=== PATIENT | male | born 1985 | race Hispanic/Latino ===

== ENCOUNTER 2019-11-18 11:44 | Inpatient (IN) | payer OTHER ==
[~2019-11-18] VITALS: Ht 167.6 cm; Wt 78.9 kg
--- OUTSIDE RECORDS SUMMARY | 2019-11-18 11:47 | XMS REPORT ---
Author Author [facility] Address Unknown Phone Unavailable Care Team Providers Care Psychiatry Physician Name Role Phone Unavailable Unavailable Payers Payer Name Policy Type Policy Number Effective Date Expiration Date Problems This patient has no known problems. Allergies, Adverse Reactions, Alerts Allergy Name Allergy Type Status Severity Reaction(s) Onset Date Inactive Date Treating Clinician Comments No Known Allergies DA Active U 2019-03-29 00:00:00 No Known Contrast Allergies DA Active U 2006-10-31 00:00:00 No Known Drug Allergies DA Active U 2006-10-31 00:00:00 No Known Food Allergies DA Active U 2006-10-31 00:00:00 No Known Other Allergies DA Active U 2006-10-31 00:00:00 Medications This patient has no known medications. Results Test Description Test Time Test Comments Text Results Atomic Results Result Comments COMPREHENSIVE METABOLIC PANEL 2019-03-30 05:08:00 SODIUM (test code=NA) 144 mmol/L 136-145 POTASSIUM (test code=K) 3.5 mmol/L 3.5-5.1 CHLORIDE (test code=CL) 113.0 mmol/L 98-107 CARBON DIOXIDE (test code=CO2) 23.0 mmol/L 21-32 ANION GAP (test code=GAP) 11.5 10-20 GLUCOSE (test code=GLU) 119 mg/dL 74-106 BLOOD UREA NITROGEN (test code=BUN) 12 mg/dL 7-18 GLOMERULAR FILTRATION RATE (test code=GFR) > 60 mL/min >=60 Estimated GFR by using Modified MDRD formula.Chronic kidney disease is defined as either kidney damageor GFR <60 mL/min/1.73 m2 for >3 months. CREATININE (test code=CREAT) 1.10 mg/dL 0.7-1.3 BUN/CREATININE RATIO (test code=BUN/CREA) 10.5 10-20 TOTAL PROTEIN (test code=PROT) 5.7 gram/dL 6.4-8.2 ALBUMIN (test code=ALB) 3.2 g/dL 3.4-5.0 GLOBULIN (test code=GLOB) 2.5 gram/dL 2.7-4.2 ALBUMIN/GLOBULIN RATIO (test code=A/G) 1.3 0.75-1.50 CALCIUM (test code=CA) 8.3 mg/dL 8.5-10.1 BILIRUBIN TOTAL (test code=BILT) 0.30 mg/dL 0.0-1.0 SGOT/AST (test code=AST) 17 IUnit/L 15-37 SGPT/ALT (test code=ALT) 48 IUnit/L 12-78 ALKALINE PHOSPHATASE TOTAL (test code=ALKP) 76 IUnit/L 45-117 Note change in reference range due to change in reagent. [id number] 05:08:00* Test Item Value Reference Range Comments MAGNESIUM (test code=MAG) 2.2 mg/dL 1.8-2.4 COMPREHENSIVE METABOLIC [id number] 05:01:00* Test Item Value Reference Range Comments SODIUM (test code=NA) 144 mmol/L 136-145 POTASSIUM (test code=K) 3.5 mmol/L 3.5-5.1 CHLORIDE (test code=CL) 113.0 mmol/L 98-107 CARBON DIOXIDE (test code=CO2) mmol/L 21-32 ANION GAP (test code=GAP) 10-20 GLUCOSE (test code=GLU) mg/dL 74-106 BLOOD UREA NITROGEN (test code=BUN) mg/dL 7-18 GLOMERULAR FILTRATION RATE (test code=GFR) mL/min >=60 CREATININE (test code=CREAT) mg/dL 0.7-1.3 BUN/CREATININE RATIO (test code=BUN/CREA) 10-20 TOTAL PROTEIN (test code=PROT) gram/dL 6.4-8.2 ALBUMIN (test code=ALB) g/dL 3.4-5.0 GLOBULIN (test code=GLOB) gram/dL 2.7-4.2 ALBUMIN/GLOBULIN RATIO (test code=A/G) 0.75-1.50 CALCIUM (test code=CA) mg/dL 8.5-10.1 BILIRUBIN TOTAL (test code=BILT) mg/dL 0.0-1.0 SGOT/AST (test code=AST) IUnit/L 15-37 SGPT/ALT (test code=ALT) IUnit/L 12-78 ALKALINE PHOSPHATASE TOTAL (test code=ALKP) IUnit/L 45-117 [id number] 05:01:00* Test Item Value Reference Range Comments MAGNESIUM (test code=MAG) mg/dL 1.8-2.4 CBC W/AUTO [id number] 04:53:00* Test Item Value Reference Range Comments WHITE BLOOD CELL (test code=WBC) 6.5 K/mm3 4.5-12.5 RED BLOOD CELL (test code=RBC) 4.16 mill/mm3 4.0-5.8 HEMOGLOBIN (test code=HGB) 13.4 gram/dL 13.0-17.5 HEMATOCRIT (test code=HCT) 39.0 % 42.0-52.0 MEAN CELL VOLUME (test code=MCV) 93.8 fL 80-98 MEAN CELL HGB (test code=MCH) 32.2 picogram 27.0-33.0 MEAN CELL HGB CONCETRATION (test code=MCHC) 34.4 gram/dL 33.0-36.0 RED CELL DISTRIBUTION WIDTH (test code=RDW) 12.1 % 11.6-16.2 RED CELL DISTRIBUTION WIDTH SD (test code=RDW-SD) 42.2 fL 37.0-51.0 PLATELET COUNT (test code=PLT) 171 K/mm3 150-450 MEAN PLATELET VOLUME (test code=MPV) 10.3 fL 6.7-11.0 NEUTROPHIL % (test code=NT%) 43.0 % 39.0-69.0 IMMATURE GRANULOCYTE % (test code=IG%) 0.2 % 0.0-5.0 LYMPHOCYTE % (test code=LY%) 47.0 % 25.0-55.0 MONOCYTE % (test code=MO%) 7.5 % 0.0-10.0 EOSINOPHIL % (test code=EO%) 1.7 % 0.0-5.0 BASOPHIL % (test code=BA%) 0.6 % 0.0-1.0 NUCLEATED RBC % (test code=NRBC%) 0.0 % 0-0 NEUTROPHIL # (test code=NT#) 2.80 K/mm3 1.8-7.7 IMMATURE GRANULOCYTE # (test code=IG#) 0.01 x10 3/uL 0-0.03 LYMPHOCYTE # (test code=LY#) 3.06 K/mm3 1.0-5.0 MONOCYTE # (test code=MO#) 0.49 K/mm3 0-0.8 EOSINOPHIL # (test code=EO#) 0.11 K/mm3 0.0-0.5 BASOPHIL # (test code=BA#) 0.04 K/mm3 0.0-0.2 NUCLEATED RBC # (test code=NRBC#) 0.00 K/mm3 0.0-0.1 MANUAL DIFF REQUIRED (test code=MDIFF) NO [id number] 16:29:00* Test Item Value Reference Range Comments SALICYLATE (test code=TRACIE) 2.4 mg/dL 2.8-20.0 [id number] 16:29:00* Test Item Value Reference Range Comments ALCOHOL (test code=ALC) < 3 mg/dL 0.0-3.0 INTERPRETIVE DATA NOTE: POSITIVE SCREENING RESULTS SHOULD BE CONSIDERED PRESUMPTIVE.WHEN COLLECTED FOR MEDICAL PURPOSES ONLY. SPECIMEN WILL NOTBE COLLECTED BY CHAIN OF CUSTODY.IF A CONFIRMATION OF POSITIVE RESULTS IS DESIRED, ACONFIRMATION TEST MUST BE REQUESTED BY THE PHYSICIAN AT ANADDITIONAL CHARGE TO THE PATIENT. [id number] 16:25:00* Test Item Value Reference Range Comments MAGNESIUM (test code=MAG) 3.0 mg/dL 1.8-2.4 [id number] 09:31:00* Test Item Value Reference Range Comments ACETAMINOPHEN (test code=ACET) < 10 mcg/mL 10-30 A RANGE OF 10-30 mcg/mL IS A THERAPEUTIC RANGE. TOXIC CONCENTRATIONS: >150 mcg/mL AT 4 HOURS AFTER INGESTION >=50 mcg/mL AT 12 HOURS AFTER INGESTION [id number] 09:26:00* Test Item Value Reference Range Comments SALICYLATE (test code=TRACIE) 2.3 mg/dL 2.8-20.0 URINALYSIS [id number] 06:46:00* Test Item Value Reference Range Comments UA COLOR (test code=COLU) COLORLESS YELLOW UA APPEARANCE (test code=APPU) CLEAR CLEAR UA GLUCOSE DIPSTICK (test code=DGLUU) NEGATIVE mg/dL NEGATIVE UA BILIRUBIN DIPSTICK (test code=BILU) NEGATIVE mg/dL NEGATIVE UA KETONE DIPSTICK (test code=KETU) NEGATIVE mg/dL NEGATIVE UA SPECIFIC GRAVITY (test code=SGU) 1.008 1.001-1.035 UA BLOOD DIPSTICK (test code=CAROL) Negative mg/dL NEGATIVE UA PH DIPSTICK (test code=GARIMA) 5.5 5.0-8.0 UA PROTEIN DIPSTICK (test code=PROU) NEGATIVE mg/dL NEGATIVE UA UROBILINIOGEN DIPSTICK (test code=URO) Normal mg/dL NEGATIVE UA NITRITE DIPSTICK (test code=ABIGAIL) NEGATIVE NEGATIVE UA LEUKOCYTE ESTERASE W REFLEX (test code=LEUUR) NEGATIVE Tiffany/uL NEGATIVE UA WBC (test code=WBCU) 0-5 per HPF 0-5 UA RBC (test code=RBCU) 0-2 #/HPF 0-5 UA EPITHELIAL CELLS (test code=EPIU) None seen per HPF FEW UA BACTERIA (test code=BACU) FEW #/HPF NONE UA MUCUS (test code=MUCU) FEW #/LPF FEW Urine Source? Clean CatchDRUGS OF ABUSE SCREEN [id number] 06:46:00* Test Item Value Reference Range Comments URN COCAINE (test code=COCAURN) NEGATIVE <300 ng/mL URN CANNABINOIDS (test code=CANNABURN) NEGATIVE <50 ng/mL URN AMPHETAMINE (test code=AMPHETURN) NEGATIVE <1000 ng/mL URN BARBITURATE (test code=BARBITURN) NEGATIVE <200 ng/mL URN BENZODIAZEPINE (test code=BENZOURN) NEGATIVE <200 ng/mL URN OPIATES (test code=OPIATURN) NEGATIVE <300 ng/mL URN PHENCYCLIDINE (PCP) (test code=PHENCURN) NEGATIVE <25 ng/mL URN METHADONE (test code=METHAURN) NEGATIVE <300 ng/mL Urine Source? Clean CatchURINALYSIS [id number] 06:45:00* Test Item Value Reference Range Comments UA COLOR (test code=COLU) COLORLESS YELLOW UA APPEARANCE (test code=APPU) CLEAR CLEAR UA GLUCOSE DIPSTICK (test code=DGLUU) NEGATIVE mg/dL NEGATIVE UA BILIRUBIN DIPSTICK (test code=BILU) NEGATIVE mg/dL NEGATIVE UA KETONE DIPSTICK (test code=KETU) NEGATIVE mg/dL NEGATIVE UA SPECIFIC GRAVITY (test code=SGU) 1.008 1.001-1.035 UA BLOOD DIPSTICK (test code=CAROL) Negative mg/dL NEGATIVE UA PH DIPSTICK (test code=GARIMA) 5.5 5.0-8.0 UA PROTEIN DIPSTICK (test code=PROU) NEGATIVE mg/dL NEGATIVE UA UROBILINIOGEN DIPSTICK (test code=URO) Normal mg/dL NEGATIVE UA NITRITE DIPSTICK (test code=ABIGAIL) NEGATIVE NEGATIVE UA LEUKOCYTE ESTERASE W REFLEX (test code=LEUUR) NEGATIVE Tiffany/uL NEGATIVE UA WBC (test code=WBCU) 0-5 per HPF 0-5 UA RBC (test code=RBCU) 0-2 #/HPF 0-5 UA EPITHELIAL CELLS (test code=EPIU) None seen per HPF FEW UA BACTERIA (test code=BACU) FEW #/HPF NONE UA MUCUS (test code=MUCU) FEW #/LPF FEW Urine Source? Clean CatchDRUGS OF ABUSE SCREEN [id number] 06:45:00* Test Item Value Reference Range Comments URN COCAINE (test code=COCAURN) <300 ng/mL URN CANNABINOIDS (test code=CANNABURN) <50 ng/mL URN AMPHETAMINE (test code=AMPHETURN) <1000 ng/mL URN BARBITURATE (test code=BARBITURN) <200 ng/mL URN BENZODIAZEPINE (test code=BENZOURN) <200 ng/mL URN OPIATES (test code=OPIATURN) <300 ng/mL URN PHENCYCLIDINE (PCP) (test code=PHENCURN) <25 ng/mL URN METHADONE (test code=METHAURN) <300 ng/mL Urine Source? Clean [id number] 05:22:00* Test Item Value Reference Range Comments MAGNESIUM (test code=MAG) 1.7 mg/dL 1.8-2.4 BASIC METABOLIC [id number] 04:00:00* Test Item Value Reference Range Comments SODIUM (test code=NA) 144 mmol/L 136-145 POTASSIUM (test code=K) 3.3 mmol/L 3.5-5.1 CHLORIDE (test code=CL) 107.0 mmol/L 98-107 CARBON DIOXIDE (test code=CO2) 25.0 mmol/L 21-32 ANION GAP (test code=GAP) 15.3 10-20 GLUCOSE (test code=GLU) 102 mg/dL 74-106 BLOOD UREA NITROGEN (test code=BUN) 15 mg/dL 7-18 GLOMERULAR FILTRATION RATE (test code=GFR) > 60 mL/min >=60 Estimated GFR by using Modified MDRD formula.Chronic kidney disease is defined as either kidney damageor GFR <60 mL/min/1.73 m2 for >3 months. CREATININE (test code=CREAT) 1.20 mg/dL 0.7-1.3 BUN/CREATININE RATIO (test code=BUN/CREA) 12.0 10-20 CALCIUM (test code=CA) 8.4 mg/dL 8.5-10.1 HEPATIC FUNCTION [id number] 04:00:00* Test Item Value Reference Range Comments TOTAL PROTEIN (test code=PROT) 6.7 gram/dL 6.4-8.2 ALBUMIN (test code=ALB) 3.9 g/dL 3.4-5.0 GLOBULIN (test code=GLOB) 2.8 gram/dL 2.7-4.2 ALBUMIN/GLOBULIN RATIO (test code=A/G) 1.4 0.75-1.50 BILIRUBIN TOTAL (test code=BILT) 0.30 mg/dL 0.0-1.0 BILIRUBIN DIRECT (test code=BILD) 0.10 mg/dL 0.0-0.20 SGOT/AST (test code=AST) 20 IUnit/L 15-37 SGPT/ALT (test code=ALT) 71 IUnit/L 12-78 ALKALINE PHOSPHATASE TOTAL (test code=ALKP) 77 IUnit/L 45-117 Note change in reference range due to change in reagent. [id number] 04:00:00* Test Item Value Reference Range Comments ACETAMINOPHEN (test code=ACET) < 10 mcg/mL 10-30 A RANGE OF 10-30 mcg/mL IS A THERAPEUTIC RANGE. TOXIC CONCENTRATIONS: >150 mcg/mL AT 4 HOURS AFTER INGESTION >=50 mcg/mL AT 12 HOURS AFTER INGESTION [id number] 04:00:00* Test Item Value Reference Range Comments SALICYLATE (test code=TRACIE) 2.7 mg/dL 2.8-20.0 [id number] 04:00:00* Test Item Value Reference Range Comments ALCOHOL (test code=ALC) 114 mg/dL 0.0-3.0 INTERPRETIVE DATA NOTE: POSITIVE SCREENING RESULTS SHOULD BE CONSIDERED PRESUMPTIVE.WHEN COLLECTED FOR MEDICAL PURPOSES ONLY. SPECIMEN WILL NOTBE COLLECTED BY CHAIN OF CUSTODY.IF A CONFIRMATION OF POSITIVE RESULTS IS DESIRED, ACONFIRMATION TEST MUST BE REQUESTED BY THE PHYSICIAN AT ANADDITIONAL CHARGE TO THE PATIENT. BASIC METABOLIC [id number] 03:53:00* Test Item Value Reference Range Comments SODIUM (test code=NA) 144 mmol/L 136-145 POTASSIUM (test code=K) 3.3 mmol/L 3.5-5.1 CHLORIDE (test code=CL) 107.0 mmol/L 98-107 CARBON DIOXIDE (test code=CO2) mmol/L 21-32 ANION GAP (test code=GAP) 10-20 GLUCOSE (test code=GLU) mg/dL 74-106 BLOOD UREA NITROGEN (test code=BUN) mg/dL 7-18 GLOMERULAR FILTRATION RATE (test code=GFR) mL/min >=60 CREATININE (test code=CREAT) mg/dL 0.7-1.3 BUN/CREATININE RATIO (test code=BUN/CREA) 10-20 CALCIUM (test code=CA) mg/dL 8.5-10.1 HEPATIC FUNCTION [id number] 03:53:00* Test Item Value Reference Range Comments TOTAL PROTEIN (test code=PROT) gram/dL 6.4-8.2 ALBUMIN (test code=ALB) g/dL 3.4-5.0 GLOBULIN (test code=GLOB) gram/dL 2.7-4.2 ALBUMIN/GLOBULIN RATIO (test code=A/G) 0.75-1.50 BILIRUBIN TOTAL (test code=BILT) mg/dL 0.0-1.0 BILIRUBIN DIRECT (test code=BILD) mg/dL 0.0-0.20 SGOT/AST (test code=AST) IUnit/L 15-37 SGPT/ALT (test code=ALT) IUnit/L 12-78 ALKALINE PHOSPHATASE TOTAL (test code=ALKP) IUnit/L 45-117 [id number] 03:53:00* Test Item Value Reference Range Comments ACETAMINOPHEN (test code=ACET) mcg/mL 10-30 [id number] 03:53:00* Test Item Value Reference Range Comments SALICYLATE (test code=TRACIE) mg/dL 2.8-20.0 [id number] 03:53:00* Test Item Value Reference Range Comments ALCOHOL (test code=ALC) mg/dL 0-3 CBC W/O [id number] 03:42:00* Test Item Value Reference Range Comments WHITE BLOOD CELL (test code=WBC) 5.6 K/mm3 4.5-12.5 RED BLOOD CELL (test code=RBC) 4.40 mill/mm3 4.0-5.8 HEMOGLOBIN (test code=HGB) 14.0 gram/dL 13.0-17.5 HEMATOCRIT (test code=HCT) 39.8 % 42.0-52.0 MEAN CELL VOLUME (test code=MCV) 90.5 fL 80-98 MEAN CELL HGB (test code=MCH) 31.8 picogram 27.0-33.0 MEAN CELL HGB CONCETRATION (test code=MCHC) 35.2 gram/dL 33.0-36.0 RED CELL DISTRIBUTION WIDTH (test code=RDW) 12.0 % 11.6-16.2 PLATELET COUNT (test code=PLT) 177 K/mm3 150-450 MEAN PLATELET VOLUME (test code=MPV) 9.9 fL 6.7-11.0
[2019-11-18 12:12] LABS: BASOPHILS % 0.4 % (0.0-1.0); EOSINOPHILS # (AUTO) 0.1 (0.0-0.4); EOSINOPHILS % 0.7 % (0.0-6.0); HEMATOCRIT 45.6 % (38.2-49.6); HEMOGLOBIN 15.6 g/dL (14.0-18.0); LYMPHOCYTES # (AUTO) 2.5 (1.0-3.2); LYMPHOCYTES % 33.1 % (18.0-39.1); MEAN CORPUSCULAR HEMOGLOBIN 31.8 pg (28-32); MEAN CORPUSCULAR HGB CONC 34.2 g/dL (31-35); MEAN CORPUSCULAR VOLUME 92.9 fL (81-99); MONOCYTES # (AUTO) 0.7 (0.2-0.8); MONOCYTES % 8.6 % (4.4-11.3); NEUTROPHILS # (AUTO) 4.3 (2.1-6.9); NEUTROPHILS % 56.5 % (38.7-80.0); PLATELET COUNT 189 x10e3/uL (140-360); RED BLOOD COUNT 4.91 x10e6/uL (4.3-5.7); RED CELL DISTRIBUTION WIDTH 12.3 % (11.7-14.4)
[2019-11-18] MEDS ORDERED: SODIUM CHLORIDE 0.9% 1000ML 1,000 ML IV STA (12:15)
[2019-11-18 12:25] LABS: INR 0.86; PROTHROMBIN TIME 12.2 seconds (11.9-14.5)
[2019-11-18 12:26] LABS: PARTIAL THROMBOPLASTIN TIME 27.5 seconds (23.8-35.5)
[2019-11-18 12:27] LABS: CLARITY,URINE CLEAR (CLEAR); COLOR,URINE YELLOW (YELLOW)
[2019-11-18 12:28] LABS: BILIRUBIN,URINE NEGATIVE (NEGATIVE); KETONES,URINE NEGATIVE (NEGATIVE); LEUKOCYTE ESTERASE ,URINE NEGATIVE (NEGATIVE); NITRITE,URINE NEGATIVE (NEGATIVE); PROTEIN,URINE DIPSTICK NEGATIVE (NEGATIVE); URINE UROBILINOGEN 0.2 mg/dL (0.2 - 1)
[2019-11-18 12:36] LABS: BACTERIA,URINE FEW /HPF; EPITHELIAL CELLS,URINE RARE /LPF; WBC,URINE (MAN) 0-5 /HPF (0-5)
--- NOTE | 2019-11-18 12:40 | Diagnostic Imaging Report ---
Examination: CT BRAIN WO CONTRAST History:Seizure Comparison studies:None Technique: Axial images were obtained from the skull base to the vertex. Coronal and sagittal images reconstructed from the axial data. Dose modulation, iterative reconstruction, and/or weight based adjustment of the mA/kV was utilized to reduce the radiation dose to as low as reasonably achievable. Intravenous contrast: None Findings: Scalp: No abnormalities. Bones: No fractures, blastic or lytic lesions. Brain sulci: Appropriate for age. Ventricles: Normal in size and configuration. No hydrocephalus. Extra-axial space: No abnormalities. Parenchyma: No abnormal densities. No masses, hemorrhage, or acute or chronic cortical based vascular insults.. Sellar/suprasellar region: No abnormalities. Craniocervical junction: Patent foramen magnum. No Chiari one malformation. Incidental findings: None. Impression: No intracranial abnormalities. Signed by: Dr. Joy Castellanos M.D. on 11/18/2019 12:37 PM
--- NOTE | 2019-11-18 12:44 | Diagnostic Imaging Report ---
Examination: CT CERVICAL SPINE WO CONTRAST HISTORY:Neck injury after seizure. COMPARISON:None. TECHNIQUE: Multidetector helical axial images were obtained without contrast from the foramen magnum to T1. Coronal and sagittal reformatted images were done. Bone and soft tissue windows were evaluated. Dose modulation, iterative reconstruction, and/or weight based adjustment of the mA/kV was utilized to reduce the radiation dose to as low as reasonably achievable. FINDINGS: Alignment:Normal alignment and lordosis. Vertebrae: Normal height and density. No acute fracture, infection or neoplasm. Disc space heights: Normal height. Caliber of spinal canal: Developmentally normal. Posterior fossa and craniocervical junction: Foramen magnum patent. No Chiari 1 malformation. Soft tissues: No abnormality. Degenerative changes: No disc bulge/ herniation or foraminal or canal stenosis. Visualized lung apices: No abnormalities. IMPRESSION: No abnormalities. Signed by: Dr. Joy Castellanos M.D. on 11/18/2019 12:41 PM
--- NOTE | 2019-11-18 12:47 | Diagnostic Imaging Report ---
Comparison: No comparison chest imaging History: Seizure, syncope Findings: Lungs clear. No pleural effusions or pneumothorax. The heart shadow and pulmonary vascularity are normal in appearance. The thoracic aorta appears normal in caliber. No skeletal abnormalities are visualized. Bilateral nipple piercings overlie the lower lungs. Impression: No evidence of acute cardiopulmonary disease. Signed by: Gus Thompson MD on 11/18/2019 12:44 PM
[2019-11-18 12:50] LABS: ALANINE AMINOTRANSFERASE 56 IU/L (0-55); ALBUMIN 4.1 g/dL (3.5-5.0); ALBUMIN/GLOBULIN RATIO 1.6 (0.8-2.0); ALKALINE PHOSPHATASE 68 IU/L (40-150); ANION GAP 12.2 mmol/L (8-16); BLOOD UREA NITROGEN 17 mg/dL (7-26); BUN/CREATININE RATIO 17 (6-25); CALCIUM 9.6 mg/dL (8.4-10.2); CARBON DIOXIDE 29 mmol/L (22-29); CHLORIDE 105 mmol/L (98-107); CREATINE KINASE 435 IU/L (30-200); CREATININE, SERUM 0.98 mg/dL (0.72-1.25); EST GLOMERULAR FILTRATION RATE > 60 ML/MIN (60-); GLUCOSE 81 mg/dL (74-118); POTASSIUM 4.2 mmol/L (3.5-5.1); SODIUM 142 mmol/L (136-145)
[2019-11-18] MEDS ORDERED: ENOXAPARIN INJ 80 MG/0.8 ML SYR SC STA (13:42)
[2019-11-18] MEDS ORDERED: ASPIRIN 325 MG TAB PO ONE (13:45)
[2019-11-18 13:53] LABS: AMPHETAMINES SCREEN,URINE NEGATIVE (NEGATIVE); BENZODIAZEPINES SCREEN,URINE NEGATIVE (NEGATIVE); PHENCYCLIDINE SCREEN,URINE NEGATIVE (NEGATIVE)
[2019-11-18] MEDS: FAMOTIDINE 20 MG TAB PO SCH (14:26)
[2019-11-18 14:38] LABS: CHOL/HDL RATIO 5.2 (3.9-4.7)
--- NOTE | 2019-11-18 15:30 | NUR ---
{null, RCD PT FROM ER BY WHEEL CHAIR PT IS ALERT AND ORIENTED VITALS CHECKED PT RESTING ON BED IV PATENT BY SALINE FLUSH ,ADMISSION ASSESSMENT AND HISTORY DONE INSTRUCTED THE PT REGARDING HOSPITAL POLICY AND ROUTINE BED LOW AND LOCKED CALL LIGHT IN REACH }
[2019-11-18 15:59] VITALS: BP 119/73
[2019-11-18 16:49] VITALS: BP 119/73
[2019-11-18 16:54] VITALS: BP 119/73
--- NOTE | 2019-11-18 19:07 | NUR ---
{null, PT RESTING ON BED BED SIDE REPORT GIVEN TO ONCOMING NURSE }
[2019-11-18 20:11] VITALS: BP 126/65
[2019-11-18 20:42] VITALS: BP 126/65
--- NOTE | 2019-11-18 20:46 | Consultation ---
DATE OF CONSULTATION: Cardiology Consultation REASON FOR CONSULTATION: Syncope and elevated troponin. HISTORY OF PRESENT ILLNESS: This is a 33-year-old man with a history of depression and hyperlipidemia, also with a significant family history of cardiovascular disease, who presented to the emergency department after a syncopal episode. The patient states that he was in the bathroom this morning and lost consciousness, slumped over, hit his head and bit his tongue. Denies any palpitations, chest pain, or shortness of breath currently. He does report prior history of occasional chest discomfort. He also smokes cigarettes for many years. REVIEW OF SYSTEMS: A 12-point review of system was conducted and is negative except as stated above in the HPI. PAST MEDICAL HISTORY: As stated above in the HPI. PAST SURGICAL HISTORY: None recent. PAST FAMILY HISTORY: Cardiovascular disease. SOCIAL HISTORY: Tobacco use. Occasional alcohol use. ALLERGIES: NO DRUG ALLERGIES. MEDICATIONS: See medication reconciliation form. PHYSICAL EXAMINATION: VITAL SIGNS: Temperature is 97.4, heart rate is 69, respirations are 14, blood pressure is 119/73, and oxygen saturation 95% on room air. GENERAL: He is well appearing, well built, no apparent distress. Alert and oriented x3. HEAD: Normocephalic and atraumatic. EYES: The extraocular muscles intact. Conjunctivae clear. NECK: No JVD. No bruits. CARDIOVASCULAR: Regular rate and rhythm. Systolic murmur at the left sternal border. LUNGS: Clear to auscultation. ABDOMEN: Soft, nontender, and nondistended. EXTREMITIES: No clubbing, cyanosis, or edema. A 12-lead electrocardiogram showed normal sinus rhythm with poor R-wave progression. LABORATORY VALUES: All reviewed. Creatinine is normal. CK is 435, CK-MB is 6.9, and troponin is 0.33. Total cholesterol is 267, LDL is 173, and triglycerides are 214. Urine drug screen is negative. IMPRESSION: 1. Syncope. 2. Elevated troponins. 3. Occasional chest pain. 4. Hyperlipidemia. 5. Tobacco abuse. 6. Abnormal electrocardiogram. RECOMMENDATIONS: The patient has already received Lovenox for anticoagulation. We will start aspirin. Start high-dose statins. Continue to trend cardiac enzymes. We will check a 2D echocardiogram. The patient will need coronary angiography. DO TOÑO Bhatia/GENO /[id number]
[2019-11-18] MEDS: ATORVASTATIN 40 MG TAB PO SCH (21:27)
--- NOTE | 2019-11-18 21:51 | History and Physical ---
CHIEF COMPLAINT: Chest pressure, mpf-XV-eidallapt myocardial infarction, positive troponin, shortness of breath. HISTORY OF PRESENT ILLNESS: The patient is a 33-year-old smoker, came into the hospital with chest pain. The patient has positive enzymes, troponin I first set at 0.33 with a CK-MB of 6.9 and creatinine kinase of 435. The patient also has high triglycerides of 214, total cholesterol of 267, and LDL 173. The patient was told previously that he has atherosclerotic disease, but he did not have any cardiac workup recently. The patient came in with chest pressure and chest pain. The patient has basically positive cardiac enzymes with history of coronary artery disease by family history. The patient is also a smoker approximately 2 packs per week. He is pending for cardiac catheterization and further workup. PAST MEDICAL HISTORY: Dyslipidemia, atherosclerotic disease. PAST SURGICAL HISTORY: Noncontributory. SOCIAL HISTORY: The patient is a social drinker, but he is a smoker, but no more than 2 pack per week. ALLERGIES: NO KNOWN ALLERGIES. HOME MEDICATIONS: None. PHYSICAL EXAMINATION: VITAL SIGNS: Temperature is 98, blood pressure 119/73, pulse rate 69, respirations 18. GENERAL: The patient is not in acute distress. He is awake. HEENT: Normocephalic and atraumatic. Anicteric. NECK: Supple grossly. PULMONARY: Clear. CARDIOVASCULAR: Regular rate and rhythm. There is systolic murmur noticed. No gallop or rub. ABDOMEN: Soft, nontender, nondistention. EXTREMITIES: No cyanosis or edema. NEUROLOGIC: No gross focal deficit. Moving all extremities. LABORATORY DATA: Sodium is 142, potassium 4.2, chloride 105, bicarb 29, BUN 17, creatinine 0.9, and glucose is 81. AST 26, ALT 56, creatine kinase of 435, CK-MB 6.9. Troponin I first set 0.33. Triglycerides 214, total cholesterol 267, LDL 173, HDL 53, cholesterol and HDL ratio is 5.2. WBC of 7.3, hemoglobin of 15.6, hematocrit 45.6, and platelets 189. Toxicology negative. Urinalysis unremarkable. Chest x-ray, brain CT, and cervical spine CT are negative. IMPRESSION: 1. Unstable angina with positive troponin I first set. 2. Heart murmur. 3. Dyslipidemia. 4. Smoker, 2 packs per week. PLAN: Cardiac catheterization. Echocardiogram. EKG reading. Lipitor, statin for now. Aspirin. Lovenox. We will monitor the patient closely. We will follow up on the patient's cardiac catheterization. The patient will be admitted inpatient for further workup. MD LEYLA Diaz/GENO /[id number]
[2019-11-19] VITALS (11 sets, daily range): BP systolic 108–139; BP diastolic 63–91
[2019-11-19 00:50] LABS: CREATINE KINASE MB 5.2 ng/mL (0-5.0)
[2019-11-19] MEDS: FAMOTIDINE 20 MG TAB PO SCH ×2 (01:18→14:15)
[2019-11-19] MEDS: ASPIRIN 81 MG ENTERIC COATED PO SCH (09:00)
--- NOTE | 2019-11-19 11:00 | NUR ---
{null, ASSESSMENT: Spiritual concern Pt hopeful to return home soon. Pt finds meaning in rescuing animals. Pt states his mother is checking on his animals during his hospitalization. Intervention: Provided hospitality and empathic listening. Facilitated identification of emotions. Provided information on how to reach application integration engineer, if needed. Outcome: Pt expressed appreciation for visit. No need to follow at this time. AGUSTINA DELANEY Food Service Assistant Spiritual Care Department O: [phone] }
--- NOTE | 2019-11-19 11:37 | Progress Note ---
DATE: 11/19/2019 Cardiology Progress Note SUBJECTIVE: The patient denies chest pain or shortness of breath. OBJECTIVE: VITAL SIGNS: Temperature 97.9 degrees, pulse 61, respiratory rate 16, blood pressure 108/63, and oxygen saturation 96% on room air. GENERAL: Awake, alert, in no acute distress. LUNGS: Clear to auscultation bilaterally. No wheezes or crackles. CARDIOVASCULAR: Normal rate. Regular rhythm. Systolic murmur at the left sternal border. Normal S1, S2. ABDOMEN: Soft, nontender. EXTREMITIES: No edema. CARDIAC MEDICATIONS: Atorvastatin 80 mg p.o. at bedtime, aspirin 81 mg p.o. daily. LABORATORY DATA: Troponin 0.363. TELEMETRY: Personally reviewed and interpreted. Normal sinus rhythm. IMPRESSION: 1. Syncope. 2. Elevated troponin. 3. Chest pain. 4. Hyperlipidemia. 5. Tobacco use. 6. Abnormal ECG. RECOMMENDATIONS: Echocardiogram revealed asymmetric septal hypertrophy and systolic anterior motion of the anterior leaflet of the mitral valve. Given troponin elevation, we will proceed with cardiac catheterization today. Plan to also perform a left heart catheterization to evaluate for gradient in the left ventricle and LVOT. Monitor patient on telemetry while admitted. Continue current cardiac medications. Further recommendations pending test results. Thank you for this consult. We will continue to follow. Moon Dozier MD ABS/MODL /[id number]
--- NOTE | 2019-11-19 13:33 | NUR ---
{null, 1333 PT TRANSFERRED VIA BED TO [employer]ERK, NO SIGN OF ACUTE DISTRESS NOTED }
[2019-11-19] MEDS ORDERED: VERAPAMIL HCL 2.5 MG/ML 2 ML VIAL ONE (13:41)
[2019-11-19] MEDS ORDERED: MIDAZOLAM HCL 2 MG/2 ML VIAL ONE (13:41)
[2019-11-19] MEDS ORDERED: FENTANYL CITRATE/PF 100MCG/2 ML INJ ONE (13:41)
[2019-11-19] MEDS ORDERED: IOPAMIDOL 370 MG/ML 200 ML INFUS..BTL INJ ONE (13:42)
[2019-11-19] MEDS ORDERED: HEPARIN SOD/SOD CHLORIDE 2,000 ML ONE (13:42)
[2019-11-19] MEDS ORDERED: LIDOCAINE HCL 2% LOCAL 20 ML VIAL ONE (13:43)
[2019-11-19] MEDS ORDERED: SODIUM CHLORIDE 0.9% 1000ML 1,000 ML ONE (13:49)
--- NOTE | 2019-11-19 16:10 | NUR ---
{null, TR band successfully removed. + neurovascular function, no bruising. }
--- NOTE | 2019-11-19 16:20 | NUR ---
{null, [facility] BACK [facility], REPORT REC'D FROM CARLOS JEWELL, DRESSING TO RIGHT WRIST CD&I, PT HAS NO C/O PAIN, PT MAY EAT }
--- NOTE | 2019-11-19 16:30 | NUR ---
{null, Pt meets DC criteria for return to floor. right radial assessed for s/s of complication and presence of hematoma. overall warm, dry, no discolor, and pulses present. IV patent to right AC area 20g. . VS WNL. Pt denies pain, sob, or need at this time. Family not available at this time. Review of radial precautions instructions. verbalized understanding. report called to jj dimas Pt to telemetry and transported back to room 209. - cgf }
[2019-11-19] MEDS: ATORVASTATIN 40 MG TAB PO SCH (20:27)
[2019-11-20] VITALS: BP 119/72
[2019-11-20] MEDS: FAMOTIDINE 20 MG TAB PO SCH (01:18)
[2019-11-20 04:00] VITALS: BP 119/66
[2019-11-20 06:32] VITALS: BP 119/66
[2019-11-20 08:17] VITALS: BP 118/72
[2019-11-20 08:40] VITALS: BP 118/72
[2019-11-20] MEDS: ASPIRIN 81 MG ENTERIC COATED PO SCH (08:42)
--- NOTE | 2019-11-20 10:17 | Discharge Summary ---
[employer]NAGER [employer]: John Dixon MD. FINAL DIAGNOSES: 1. Unstable angina, status post cardiac catheterization. No intervention. 2. Dyslipidemia with high triglyceride level and high LDL. SUMMARY: A 33-year-old male with multiple risk factors, smoker, who came to the hospital with increase in troponin I. The patient's troponin I was elevated at 0.33 with CK-MB of 6.9 and CK of 435. The patient also had triglycerides 214, total cholesterol 267, LDL 173, and HDL of 51 with cholesterol HDL ratio 5.2. The patient's renal function is normal. Liver enzyme is normal. The patient is otherwise stable. WBC 7.5, hemoglobin and hematocrit of 15.6 and 45.6. The patient also had imaging done including chest x-ray is unremarkable. The patient is a smoker. He is stable. He does have family history of coronary artery disease. The patient will be discharged home with pravastatin and Ecotrin 81 mg daily. The patient is otherwise stable. Risk factor management discussed with the patient at length. Stop smoking. Healthier diet. The patient to follow up in approximately 1-2 weeks. We will repeat his cholesterol panel and liver enzymes in approximately 4 weeks. The patient is otherwise stable, discharged home today, either follow with his family physician if he does have one or with me in approximately one week for adjustment of medication. MD LEYLA Diaz/ARTHURL /[id number]
--- NOTE | 2019-11-20 10:49 | NUR ---
{null, Patient received discharge order from . Patient was given discharge instructions, prescriptions, and was assisted with his belongs at 1000. Patient's IV was removed at 1009 and covered with a dry dressing. Patient had no issues or complaints. Patient was escorted to the front door at 1043 with this television writer to his moms's car. }
--- NOTE | 2020-01-19 01:12 | Operative Report ---
DATE OF PROCEDURE: SURGEON: Justin Mccallum MD CARDIOLOGY CATHETERIZATION REPORT INDICATION FOR PROCEDURE: Non-ST elevation [place]. PREPROCEDURE ASSESSMENT: The risks, benefits, and alternatives of the treatment were explained to the patient prior to the procedure. The patient was deemed to be an appropriate candidate for moderate sedation. Informed consent was obtained and documented in the medical record. MEDICATIONS: Please see nursing notes for medications administered throughout the procedure. PROCEDURES PERFORMED: 1. Coronary angiography. 2. Left heart catheterization. PROCEDURE IN DETAIL: The patient was brought to the cardiac catheterization laboratory in a fasting state. Right wrist was prepped and draped in a sterile fashion. A 6-Georgian Slender sheath was inserted in the right radial artery using modified Seldinger technique. Coronary angiography was performed using 5-Georgian Danisha radial catheter. Left heart catheterization was performed using a pigtail catheter. All catheters were removed over a wire. Access site was closed using a TR band device. There were no immediate complications. SIGNIFICANT FINDINGS: Right dominant coronary system with no significant coronary artery disease. Left ventricular end-diastolic pressure of 30 mmHg. There is no significant gradient across the left ventricular outflow tract or aortic valve. GRAFTS AND IMPLANTS: None. SPECIMEN REMOVED: None. COMPLICATIONS: None. ESTIMATED BLOOD LOSS: 20 mL. FINAL RECOMMENDATIONS: Continue optimal medical therapy and risk factor control. May need ICD for hypertrophic cardiomyopathy. Justin Mccallum MD KVP/MODL /[id number]
== END 2019-11-20 10:43 | disposition home or self-care (01) | DRG 287 ==
LOC: ER 11:44 → ERHOLD 14:07 → MED/SURG2 15:14 → INTOOBSV 18:34 → OBSVTOIN 18:34
PROVIDERS: ADMIT Internal Medicine; ATTEND Internal Medicine
PROC: 4A023N7 Measurement of Cardiac Sampling and Pressure, Left Heart, Percutaneous Approach (ICD-10-PCS; principal; 2019-11-19)
PROC: B2111ZZ Fluoroscopy of Multiple Coronary Arteries using Low Osmolar Contrast (ICD-10-PCS; 2019-11-19)
PROC: B2151ZZ Fluoroscopy of Left Heart using Low Osmolar Contrast (ICD-10-PCS; 2019-11-19)
DX: I20.0 Unstable angina (principal); R01.1 Cardiac murmur, unspecified; Z72.0 Tobacco use; E78.5 Hyperlipidemia, unspecified; Z82.49 Family history of ischemic heart disease and other diseases of the circulatory system; R55 Syncope and collapse; E78.1 Pure hyperglyceridemia
CPT/HCPCS: 36415; 70450; 71045; 72125; 80053; 80061; 80307; 81001; 82550; 82553; 84484; 85025; 85610; 85730; 93005; 93306; 99284; J1650; J2001; J2250; J3010; J7030; Q9967